=== PATIENT | male | born 1980 | race African-American/Black ===

== ENCOUNTER 2018-12-25 23:58 | Emergency (ER) | payer SELFPAY ==
[2018-12-26 00:01] VITALS: BP 148/99
== END 2018-12-26 00:51 | disposition left against medical advice (07) ==
LOC: ER 23:58
DX: R41.82 Altered mental status, unspecified (principal); Z53.21 Procedure and treatment not carried out due to patient leaving prior to being seen by health care provider

== ENCOUNTER 2020-03-02 02:15 | Emergency (ER) | payer SELFPAY ==
[~2020-03-02] VITALS: Ht 172.7 cm; Wt 91.0 kg
[2020-03-02 03:40] VITALS: BP 147/79
== END 2020-03-02 06:07 | disposition home or self-care (01) ==
LOC: ER 02:15
DX: Z00.00 Encounter for general adult medical examination without abnormal findings (principal); F43.10 Post-traumatic stress disorder, unspecified
CPT/HCPCS: 82962; 93005; 99283